=== PATIENT | male | born 1995 | race African-American/Black ===

== ENCOUNTER 2017-08-14 00:54 | Emergency (ER) | payer OTHER ==
[~2017-08-14] VITALS: Ht 200.7 cm; Wt 94.0 kg
[2017-08-14] MEDS ORDERED: TRIL600T PO ×2 (01:07)
[2017-08-14] MEDS ORDERED: DIVA500T3 PO (01:07)
[2017-08-14 01:08] VITALS: BP 104/51; PULSE 92; RESP 16; TEMP 98.4; O2SAT 100
[2017-08-14] MEDS ORDERED: BACITRACIN TOP OINT 15 GM TUBE TOPICAL ONE (02:30)
--- NOTE | 2017-08-14 03:18 | PD ---
HPI Chief Complaint: Seizure Time Seen by Provider: 01:10 Travel History International Travel<30 days: No Contact w/Intl Traveler<30days: No Traveled to known affect area: No History of Present Illness HPI Patient is a 21-year-old male on a field trip with his college. He had a seizure today fell hit his knee left on the pavement no other injuries. Patient is a history of seizures he has been compliant with his medications. He is postictal but alert and related but sleepy. No head trauma no long bone products of tenderness no back pain with palpation of all spinous processes and his neck nontender. He has taken nothing to relieve his symptoms. It was a full tonic-clonic seizure. It's been 3 years since his last seizure prior to this day [facility] Past Medical History Diminished Hearing: No Medical other: Yes (PREMATURE .) Immunizations Current: Yes Seizures: Yes Past Surgical History Surgical History: No Previous Surgery Social History Alcohol Use: No Tobacco Use: No Substance Use: No Allergies-Medications (Allergen,Severity, Reaction): Coded Allergies: No Known Allergies (Unverified , 08/14/17) Reported Meds & Prescriptions Reported Meds & Active Scripts Active Reported Divalproex ER (Divalproex Sodium) 500 Mg Tab 1,000 Mg PO DAILY Trileptal (Oxcarbazepine) 600 Mg Tab 900 Mg PO DAILY Trileptal (Oxcarbazepine) 600 Mg Tab 600 Mg PO DAILY NEB Review of Systems Except as stated in HPI: all other systems reviewed are Neg Neurologic: Positive: Seizures Physical Exam Narrative GENERAL: Mildly postictal sleepy but related SKIN: Warm and dry. HEAD: Atraumatic. Normocephalic. EYES: Pupils equal and round. No scleral icterus. No injection or drainage. ENT: No nasal bleeding or discharge. Mucous membranes pink and moist. NECK: Trachea midline. No JVD. CARDIOVASCULAR: Regular rate and rhythm. RESPIRATORY: No accessory muscle use. Clear to auscultation. Breath sounds equal bilaterally. GASTROINTESTINAL: Abdomen soft, non-tender, nondistended. Hepatic and splenic margins not palpable. MUSCULOSKELETAL: Extremities left knee has an abrasion to the patella no pain with palpation of the joint space or the long bones of the femur or tibia or fibula. Without clubbing, cyanosis, or edema. No obvious deformities. NEUROLOGICAL: Awake and alert. No obvious cranial nerve deficits. Motor grossly within normal limits. Five out of 5 muscle strength in the arms and legs. Normal speech. PSYCHIATRIC: Appropriate mood and affect; insight and judgment normal. Data Data Last Documented VS Vital Signs Date Time Temp Pulse Resp B/P (MAP) Pulse Ox O2 Delivery O2 Flow Rate FiO2 08/14/17 01:08 98.4 92 16 104/51 (68) 100 Orders Orders Bacitracin Oint (Baciguent Oint) (08/14/17 02:30) Ed Discharge Order (08/14/17 03:53) MDM Medical Decision Making Medical Screen Exam Complete: Yes Emergency Medical Condition: Yes Differential Diagnosis General tonic-clonic seizure versus stress reaction seizure versus alcohol possible involvement seizure Narrative Course Patient is sleeping in the bed calmly physical exam trauma no signs of long bone trauma head trauma face trauma no bite of the tongue and teeth are normal a little small abrasion to his left knee no joint space pain no tibia-fibula or femur tenderness he is safe for discharge once he wakes and ambulates Diagnosis Primary Impression: Seizure Patient Instructions: General Instructions, Generalized Tonic Clonic Seizures ( ED) Disposition: 01 DISCHARGE HOME Condition: Good Fabio Reeves MD Aug 14, 2017 03:18
== END 2017-08-14 04:20 | disposition home or self-care (01) ==
LOC: NEPE 00:54
DX: R56.9 Unspecified convulsions (principal)
CPT/HCPCS: 99283